=== PATIENT | female | born 1965 | race Caucasian/White ===

== ENCOUNTER 2022-04-03 05:30 | Emergency (ER) | payer MEDICARE, OTHER, MEDICAID ==
[2022-04-03 07:15] LABS: CORONAVIRUS COVID-19 NAA POSITIVE (NEGATIVE)
== END 2022-04-03 07:55 | disposition home or self-care (01) ==
LOC: JD.ED 05:30
DX: U07.1 COVID-19 (principal); I10 Essential (primary) hypertension; E10.9 Type 1 diabetes mellitus without complications; Z88.5 Allergy status to narcotic agent; Z88.8 Allergy status to other drugs, medicaments and biological substances
CPT/HCPCS: 0241U; 99283